=== PATIENT | male | born 1995 | race Caucasian/White ===

== ENCOUNTER 2017-08-28 20:12 | Emergency (ER) | payer OTHER ==
[2017-08-28] MEDS ORDERED: TETRACAINE 0.5% STERI-UNIT SOL OP ONE (20:26)
[2017-08-28] MEDS ORDERED: Fluor-I-Strip/Ful-Flo OP ONE (20:26)
[2017-08-28] MEDS ORDERED: Cortisporin Ophth Oint 3.5 GM ONE (20:31)
[2017-08-28] MEDS ORDERED: Sodium Chloride 0.9% 250 ML 250 ML IV ONE (20:31)
[2017-08-28] MEDS ORDERED: Cortisporin Eye Drops OP ONE (20:34)
--- NOTE | 2017-08-28 20:39 | ERPHSYRPT ---
- History of Present Illness Time Seen by Provider: 08/28/17 20:33 Source: patient Exam Limitations: no limitations Patient Subjective Stated Complaint: pt is alert and oriented. pt is ambulatory with steady gait. pt states he was doing yard work with wood and metal and believes a piece got into his eye. no drainage. no swelling and mild redness to his right eye noted. Triage Nursing Assessment: see above Physician History: pt states he was doing yard work with wood and metal and believes a piece got into his eye. no drainage. no swelling and mild redness to his right eye noted. Timing/Duration: today Location: right eye Severity: mild Apparent Injury: yes Associated Symptoms: foreign body sensation Visual Assistive Devices: None Chemical Exposure: No Trauma: No Welding Arc/Tanning Bed Exposure: No Allergies/Adverse Reactions: No Known Drug Allergies Allergy (Unverified 08/28/17 20:25) Hx Tetanus, Diphtheria Vaccination/Date Given: Yes Immunizations Up to Date: Yes - Review of Systems Constitutional: No Symptoms Eyes: Eye Redness, Tearing, Foreign Body Sensation, No Vision Changes Ears, Nose, & Throat: No Symptoms - Past Medical History Pertinent Past Medical History: No - Past Surgical History Past Surgical History: No - Social History Smoking Status: Former smoker Drug Use: none - Nursing Vital Signs Nursing Vital Signs: Initial Vital Signs Temperature 98.0 F 08/28/17 20:14 Pulse Rate 78 08/28/17 20:14 Respiratory Rate 16 08/28/17 20:14 Blood Pressure 129/75 08/28/17 20:14 O2 Sat by Pulse Oximetry 96 08/28/17 20:14 - Physical Exam General Appearance: no apparent distress Vision Acuity Degree Evaluation Phase: Uncorrected Vision Acuity Right Eye: 20/20 Vision Acuity Left Eye: 20/20 Eye Exam: right eye: conjunctival inflammation, bilateral eye: normal inspection , PERRL, EOMI SpO2: 96 Oxygen Delivery: Room Air Procedures - Eye Procedure Tetracaine Drops Administered: Yes Eye FB Removal: other Remaining Material after FB Removal: none Eye Irrigated w/ Saline (ccs): 250 Antibiotic Oinment/Drps Admin: right eye Progress: no foreign body found, fundoscopic exam appears normal - Course Nursing assessment & vital signs reviewed: Yes Ordered Tests: Medication Summary Discontinued Medications Generic Name Dose Route Start Last Admin Trade Name Freq PRN Reason Stop Dose Admin Fluorescein Sodium Confirm 08/28/17 20:26 [id number]-Jprtu/Ful-Steve Administered 08/28/17 20:27 Dose 1 mg OP .STK-MED ONE Tetracaine HCl Confirm 08/28/17 20:26 Tetracaine 0.5% Steri-Unit Sharon Administered 08/28/17 20:27 Dose 4 ml OP .STK-MED ONE - Progress Progress: improved Counseled pt/family regarding: diagnosis, need for follow-up - Departure Time of Disposition: 20:36 Departure Disposition: Home Clinical Impression: Eye injury, non-penetrating Qualifiers: Encounter type: initial encounter Laterality: right Qualified Code(s): S05.91XA - Unspecified injury of right eye and orbit, initial encounter Eye injury, superficial Qualifiers: Encounter type: initial encounter Laterality: right Qualified Code(s): S05.8X1A - Other injuries of right eye and orbit, initial encounter Condition: Stable Critical Care Time: No Referrals: BETSY JOHNSON [Primary Care Provider] - Instructions: Foreign Body in Eye (DC) Additional Instructions: EYE PROBLEM 1. If a patch is applied, your vision will be impaired. Do not drive. 2. The more you rest your good eye, the better your affected eye will feel. 3. Use any eye drops or ointments as prescribed by the emergency room physician. 4. See your family physician or return to the emergency department for any increasing pain or decreased vision. 5. Use good hygiene and keep eye clean. 6. Do not rub the eye. HOLAABEL ALAN was seen on 08/28/17 n the Emergency Room. At that time you were treated for an emergent condition, during your visit Laboratory, Radiology and/or other procedures may have been ordered. It is very important that you follow-up with your Primary Care Physician BETSY JOHNSON within the next 24-48 hours to review your Emergency Room visit and the final results of testing that was ordered. Some test results such as Urine Cultures, Blood Cultures, and other cultures if ordered will not be finalized for 24-48 hours. If you do not have a Primary Care Provider please call the medical records department at [phone] to obtain a copy of your results or you may sign into our patient portal to obtain these results by visiting us @ [email or web address] and completing the following steps: 1. Click on the Patient Portal link 2. Click the Patient Self Enrollment Link to complete the enrollment form and entering your 3. Once the enrollment form is completed you will receive an email with a temporary ID and password at the email address you provided. 4. Next choose a user name and password. Your user name must be at least 4 characters long and your password must be at least 4 characters long. 5. Choose a security question from the list and provide your answer to the question. If you already have signed into the Health Portal you may access your Health Care Information 01/09 by the following steps: 1. Login to our website @ [email or web address] 2. Enter your original user name and password. FAQS The [facility] Health Portal is an online tool that contains your Lab Results, Radiology Reports, Visit History, Discharge Instructions and Health Summary Lab and Radiology Results will not be available for 72 hours on the portal. The Portal is a secure site, passwords are encryted and URLs are re-written so they cannot be copied and pasted. You and authorized family members are the only ones who can access your Portal. Also there is a timeout feature that protects your information if you leave the Portal page open. If you have technical difficulty please use the Contact Us link on the page this will allow you to submit any questions you have regarding the Portal or you may contact the Medical Record Department at [phone]. Please follow the instructions given to you. Please take your medication as prescribed if given. If symptoms recur or get worse, come back to the emergency room if you cannot reach your primary care physician, or call your primary care physician for an appointment. Again if your symptoms get worse, come back to the emergency room. Thanks for visiting emergency room, and let us take care of you. Use eye drops 2 drops 4 times a day for 5 days. follow up with patient consumer marketer or your primary care physician in 2 days
[2017-08-28] MEDS ORDERED: TETRACAINE 0.5% STERI-UNIT SOL OP STA (20:51)
[2017-08-28 20:58] VITALS: BP 129/75; PULSE 78; O2SAT 96
[2017-08-28] MEDS ORDERED: Cortisporin Eye Drops OP SCH (21:00)
== END 2017-08-28 20:51 | disposition home or self-care (01) ==
LOC: ED 20:12
DX: S05.91XA Unspecified injury of right eye and orbit, initial encounter (principal); X58.XXXA Exposure to other specified factors, initial encounter; Y93.H2 Activity, gardening and landscaping; Y92.007 Garden or yard of unspecified non-institutional (private) residence as the place of occurrence of the external cause
CPT/HCPCS: 66999; 99283; A9270-GY

== ENCOUNTER 2018-04-24 19:37 | Observation (INO) | payer BC, OTHER ==
[2018-04-24] MEDS ORDERED: PROTONIX 40 MG IV IV ONE ×2 (20:57→21:03)
[2018-04-24] MEDS ORDERED: Zofran 4 MG/2 ML VIAL IV ONE (20:57)
[2018-04-24] MEDS ORDERED: MORPHINE SULFATE 4 MG INJ IV ONE (20:57)
[2018-04-24] MEDS ORDERED: Sodium Chloride 0.9% 1000 ML 1,000 ML IV STA (20:57)
[2018-04-24] MEDS ORDERED: Zofran 4 MG/2 ML VIAL ONE (21:03)
[2018-04-24] MEDS ORDERED: MORPHINE SULFATE 4 MG INJ ONE (21:03)
[2018-04-24] MEDS ORDERED: Sodium Chloride 0.9% 1000 ML 1,000 ML ONE (21:03)
[2018-04-24 21:13] LABS: BASOPHIL % 0.3 % (0.0-0.4); Basophil (Absolute #) 0.03 (0-0.4); Eosinophil % 2.2 % (0.00-5.0); Eosinophil (Absolute #) 0.24 (0-0.5); Granulocyte Absolute (ANC) 7.42 (1.4-6.9); Granulocytes % 69.5 % (36.0-66.0); Hematocrit 48.4 % (42-50); Hemoglobin 16.1 gm/dl (12.5-18.0); Lymphocyte (Absolute #) 2.01 (1.0-4.6); Lymphocytes % 18.8 % (24.0-44.0); Mean Cell Volume 90.5 fl (78-100); Mean Corpuscular Hemoglobin 30.1 pg (26-32); Mean Corpuscular Hgb Concent. 33.3 g/dl (32-36); Monocyte (Absolute #) 0.98 (0.0-1.3); Monocytes % 9.2 % (0.0-12.0); Platelet Count 240 K/mm3 (150-450); Red Blood Count 5.35 M/mm3 (4.1-5.6); Red Cell Distribution Width 12.8 % (11.5-14.0); White Blood Count 10.7 K/mm3 (4.0-10.5)
[2018-04-24 21:27] LABS: ALKALINE PHOSPHATASE 101 U/L (38-126); AMYLASE 93 U/L (30-110); BLOOD UREA NITROGEN 18 mg/dL (9-20); CHLORIDE 108 mmol/L (98-107); Calcium 10.1 mg/dL (8.4-10.2); Carbon Dioxide 25 mmol/L (22-30); Creatinine 1 0.87 mg/dL (0.66-1.25); Glucose 92 mg/dL (74-106); LIPASE 57 U/L (23-300); SGOT/AST 31 U/L (17-59); SGPT/ALT 68 U/L (0-50); SODIUM 144 mmol/L (137-145); Total Protein 8.3 g/dL (6.3-8.2)
[2018-04-24 21:34] LABS: Appearance CLEAR (CLEAR); Bilirubin NEGATIVE (NEGATIVE); Blood NEGATIVE Ery/ul (0-5); Glucose NEGATIVE (NEGATIVE); Ketones NEGATIVE (NEGATIVE); Leukocyte Esterase NEGATIVE (NEGATIVE); Mucus MANY /HPF (NEGATIVE); Nitrite NEGATIVE (NEGATIVE); Protein,Urine Dip NEGATIVE (Negative); Specific Gravity 1.024 (1.005-1.025); Urobilinogen NEGATIVE mg/dL (0-1)
[2018-04-24] MEDS ORDERED: Hydromorphone 1 mg/ml Ampule IV ONE (21:34)
[2018-04-24] MEDS ORDERED: Hydromorphone 1 mg/ml Ampule ONE (21:36)
--- NOTE | 2018-04-24 21:39 | ERPHSYRPT ---
- History of Present Illness Time Seen by Provider: 04/24/18 21:33 Historian: patient, family Exam Limitations: no limitations Patient Subjective Stated Complaint: Abdominal pain Triage Nursing Assessment: Patient ambulated back to ED and transferred self to bed. Patient A+O X 3. Patient's skin pink, warm and dry. Patient complains of abdominal pain for about a month with increasing pain 6/10. Patient states he feels better when he is curled in a ball or holding onto stomach. Patient states he has vomiting yellow emesis. Patient also states having liquid yellow stools. Patient has been sweating at rest. Patient states he lost control of his bowels recently. Abdomen soft and flat with active BS. Lungs clear a/p junior. Physician History: pt has a month hx of abdominal pain now worse with vomiting, fever, and diarrhea no work up , abd is mildly diffuse tenderness no peritoneal signs and nondistended, no prior abd surgeries Timing/Duration: week(s), intermittent Quality: sharpness Abdominal Pain Onset Location: generalized abdomen Pain Radiation: no radiation Severity of Pain-Max: moderate Severity of Pain-Current: moderate Modifying Factors: Improves With: eating Associated Symptoms: nausea, vomiting Previous symptoms: same symptoms as today, no recent treatment Allergies/Adverse Reactions: No Known Drug Allergies Allergy (Verified 04/24/18 19:48) Home Medications: Ranitidine HCl 150 mg PO BID 04/24/18 [History] Hx Tetanus, Diphtheria Vaccination/Date Given: Yes Hx Influenza Vaccination/Date Given: No Hx Pneumococcal Vaccination/Date Given: No Immunizations Up to Date: Yes - Review of Systems Constitutional: Fever, No Chills Eyes: No Symptoms Ears, Nose, & Throat: No Symptoms Respiratory: No Cough, No Dyspnea Cardiac: No Chest Pain, No Edema, No Syncope Abdominal/Gastrointestinal: Abdominal Pain, Nausea, Vomiting, Diarrhea Genitourinary Symptoms: No Dysuria Musculoskeletal: No Back Pain, No Neck Pain Skin: No Rash Neurological: No Dizziness, No Focal Weakness, No Sensory Changes Psychological: No Symptoms Endocrine: No Symptoms All Other Systems: Reviewed and Negative - Past Medical History Pertinent Past Medical History: No Neurological History: No Pertinent History ENT History: No Pertinent History Cardiac History: No Pertinent History Respiratory History: No Pertinent History Endocrine Medical History: No Pertinent History Musculoskeletal History: No Pertinent History GI Medical History: No Pertinent History History: No Pertinent History Psycho-Social History: No Pertinent History Male Reproductive Disorders: No Pertinent History - Past Surgical History Past Surgical History: Yes Neuro Surgical History: No Pertinent History Cardiac: No Pertinent History Respiratory: No Pertinent History Gastrointestinal: Cholecystectomy Genitourinary: No Pertinent History Musculoskeletal: No Pertinent History Male Surgical History: No Pertinent History - Social History Smoking Status: Current some day smoker How long have you smoked: 13 years Exposure to second hand smoke: Yes Drug Use: none Patient Lives Alone: No - Nursing Vital Signs Nursing Vital Signs: Initial Vital Signs Temperature 98.6 F 04/24/18 20:31 Pulse Rate 63 04/24/18 20:31 Respiratory Rate 18 04/24/18 20:31 Blood Pressure 134/76 04/24/18 20:31 O2 Sat by Pulse Oximetry 98 04/24/18 20:31 Pain Scale Pain Intensity 5 - Physical Exam General Appearance: no apparent distress, alert Eye Exam: PERRL/EOMI, eyes nml inspection Ears, Nose, Throat Exam: normal ENT inspection, pharynx normal, moist mucous membranes Neck Exam: normal inspection, non-tender, supple, full range of motion Respiratory Exam: normal breath sounds, lungs clear, No respiratory distress Cardiovascular Exam: regular rate/rhythm, normal heart sounds Gastrointestinal/Abdomen Exam: soft, tenderness, No distention, No mass, No guarding, No rebound, No hernia Rectal Exam: deferred Back Exam: normal inspection, normal range of motion, No CVA tenderness, No vertebral tenderness Extremity Exam: normal inspection, normal range of motion, pelvis stable Neurologic Exam: alert, oriented x 3, cooperative, normal mood/affect, nml cerebellar function, sensation nml, No motor deficits Skin Exam: normal color, warm, dry SpO2: 97 - Course Nursing assessment & vital signs reviewed: Yes EKG Interpreted by Me: Sinus Rhythm, Right Gary Deviation, Non-specific ST Changes - CT Exams Abdomen/Pelvis CT Interpretation: Tele-radiologist Report, Normal Appendix Ordered Tests: Active Orders 24 hr Category Date Time Status Clean Catch Urine Specimen STAT Care 04/24/18 20:57 Active EKG-ER Only STAT Care 04/24/18 20:57 Active IV Insertion STAT Care 04/24/18 20:57 Active ABDOMEN AND PELVIS W/0 CONTRAS [CT] Stat Exams 04/24/18 20:58 Taken AMYLASE Stat Lab 04/24/18 21:00 Completed CBC W DIFF Stat Lab 04/24/18 21:00 Completed CMP Stat Lab 04/24/18 21:00 Completed LIPASE Stat Lab 04/24/18 21:00 Completed Lactic Acid Stat Lab 04/24/18 21:04 Completed TROPONIN Q3H Lab 04/24/18 21:00 Completed UA W/RFX UR CULTURE Stat Lab 04/24/18 21:00 Completed Medication Summary Discontinued Medications Generic Name Dose Route Start Last Admin Trade Name Sharq PRN Reason Stop Dose Admin Diphenhydramine HCl 50 mg 04/24/18 21:52 04/24/18 21:55 Benadryl 50 Mg/Ml IV 04/24/18 21:53 50 mg STAT ONE Administration Diphenhydramine HCl Confirm 04/24/18 21:53 Benadryl 50 Mg/Ml Administered 04/24/18 21:54 Dose 50 mg .ROUTE .STK-MED ONE Famotidine 20 mg 04/24/18 21:46 04/24/18 21:55 Pepcid 20 Mg Vial IV 04/24/18 21:47 20 mg STAT ONE Administration Famotidine Confirm 04/24/18 21:52 Pepcid 20 Mg Vial Administered 04/24/18 21:53 Dose 20 mg IV .STK-MED ONE Hydromorphone HCl 1 mg 04/24/18 21:34 04/24/18 21:37 Hydromorphone 1 Mg/Ml Ampule IV 04/24/18 21:35 1 mg STAT ONE Administration Hydromorphone HCl Confirm 04/24/18 21:36 Hydromorphone 1 Mg/Ml Ampule Administered 04/24/18 21:37 Dose 1 mg .ROUTE .STK-MED ONE Sodium Chloride 1,000 mls @ 999 mls/hr 04/24/18 20:57 04/24/18 22:10 Sodium Chloride 0.9% 1000 Ml IV 04/24/18 21:57 Infused .Q1H1M STA Infusion Sodium Chloride Confirm 04/24/18 21:03 Sodium Chloride 0.9% 1000 Ml Administered 04/24/18 21:04 Dose 1,000 mls @ ud .ROUTE .STK-MED ONE Morphine Sulfate 4 mg 04/24/18 20:57 04/24/18 21:08 Morphine Sulfate 4 Mg Inj IV 04/24/18 20:58 4 mg STAT ONE Administration Morphine Sulfate Confirm 04/24/18 21:03 Morphine Sulfate 4 Mg Inj Administered 04/24/18 21:04 Dose 4 mg .ROUTE .STK-MED ONE Ondansetron HCl 4 mg 04/24/18 20:57 04/24/18 21:07 Zofran 4 Mg/2 Ml Vial IV 04/24/18 20:58 4 mg STAT ONE Administration Ondansetron HCl Confirm 04/24/18 21:03 Zofran 4 Mg/2 Ml Vial Administered 04/24/18 21:04 Dose 4 mg .ROUTE .STK-MED ONE Pantoprazole Sodium 40 mg 04/24/18 20:57 04/24/18 21:06 Protonix 40 Mg Iv IV 04/24/18 20:58 40 mg STAT ONE Administration Pantoprazole Sodium Confirm 04/24/18 21:03 Protonix 40 Mg Iv Administered 04/24/18 21:04 Dose 40 mg IV .STK-MED ONE Lab/Rad Data: Laboratory Result Diagrams 04/24/18 21:00 04/24/18 21:00 Laboratory Results 04/24/18 04/24/18 04/24/18 Range/Units 21:04 21:00 21:00 WBC (4.0-10.5) K/mm3 RBC (4.1-5.6) M/mm3 Hgb (12.5-18.0) gm/dl Hct (42-50) % MCV (78-100) fl MCH (26-32) pg MCHC (32-36) g/dl RDW (11.5-14.0) % Plt Count (150-450) K/mm3 MPV (6-9.5) fl Gran % (36.0-66.0) % Eos # (Auto) (0-0.5) Absolute Lymphs (auto) (1.0-4.6) Absolute Monos (auto) (0.0-1.3) Lymphocytes % (24.0-44.0) % Monocytes % (0.0-12.0) % Eosinophils % (0.00-5.0) % Basophils % (0.0-0.4) % Absolute Granulocytes (1.4-6.9) Basophils # (0-0.4) Sodium (137-145) mmol/L Potassium (3.5-5.1) mmol/L Chloride (98-107) mmol/L Carbon Dioxide (22-30) mmol/L Anion Gap (5-15) MEQ/L BUN (9-20) mg/dL Creatinine (0.66-1.25) mg/dL Estimated GFR ML/MIN Glucose (74-106) mg/dL Lactic Acid 1.1 (0.4-2.0) Calcium (8.4-10.2) mg/dL Total Bilirubin (0.2-1.3) mg/dL AST (17-59) U/L ALT (0-50) U/L Alkaline Phosphatase (38-126) U/L Troponin I < 0.012 (0.000-0.034) ng/mL Serum Total Protein (6.3-8.2) g/dL Albumin (3.5-5.0) g/dL Amylase (30-110) U/L Lipase (23-300) U/L Urine Color YELLOW (YELLOW) Urine Appearance CLEAR (CLEAR) Urine pH 5.0 (5-6) Ur Specific [place] 1.024 (1.005-1.025) Urine Protein NEGATIVE (Negative) Urine Ketones NEGATIVE (NEGATIVE) Urine Blood NEGATIVE (0-5) Sherman/ul Urine Nitrite NEGATIVE (NEGATIVE) Urine Bilirubin NEGATIVE (NEGATIVE) Urine Urobilinogen NEGATIVE (0-1) mg/dL Ur Leukocyte Esterase NEGATIVE (NEGATIVE) Urine WBC (Auto) NONE (0-5) /HPF Urine RBC (Auto) NONE (0-2) /HPF U Epithel Cells (Auto) NONE (FEW) /HPF Urine Bacteria (Auto) NONE (NEGATIVE) /HPF Urine Mucus (Auto) MANY (NEGATIVE) /HPF Urine Culture Reflexed NO (NO) Urine Glucose NEGATIVE (NEGATIVE) mg/dL 04/24/18 04/24/18 Range/Units 21:00 21:00 WBC 10.7 H (4.0-10.5) K/mm3 RBC 5.35 (4.1-5.6) M/mm3 Hgb 16.1 (12.5-18.0) gm/dl Hct 48.4 (42-50) % MCV 90.5 (78-100) fl MCH 30.1 (26-32) pg MCHC 33.3 (32-36) g/dl RDW 12.8 (11.5-14.0) % Plt Count 240 (150-450) K/mm3 MPV 10.0 H (6-9.5) fl Gran % 69.5 H (36.0-66.0) % Eos # (Auto) 0.24 (0-0.5) Absolute Lymphs (auto) 2.01 (1.0-4.6) Absolute Monos (auto) 0.98 (0.0-1.3) Lymphocytes % 18.8 L (24.0-44.0) % Monocytes % 9.2 (0.0-12.0) % Eosinophils % 2.2 (0.00-5.0) % Basophils % 0.3 (0.0-0.4) % Absolute Granulocytes 7.42 H (1.4-6.9) Basophils # 0.03 (0-0.4) Sodium 144 (137-145) mmol/L Potassium 4.0 (3.5-5.1) mmol/L Chloride 108 H (98-107) mmol/L Carbon Dioxide 25 (22-30) mmol/L Anion Gap 16.0 H (5-15) MEQ/L BUN 18 (9-20) mg/dL Creatinine 0.87 (0.66-1.25) mg/dL Estimated GFR > 60.0 ML/MIN Glucose 92 (74-106) mg/dL Lactic Acid (0.4-2.0) Calcium 10.1 (8.4-10.2) mg/dL Total Bilirubin 0.40 (0.2-1.3) mg/dL AST 31 (17-59) U/L ALT 68 H (0-50) U/L Alkaline Phosphatase 101 (38-126) U/L Troponin I (0.000-0.034) ng/mL Serum Total Protein 8.3 H (6.3-8.2) g/dL Albumin 5.0 (3.5-5.0) g/dL Amylase 93 (30-110) U/L Lipase 57 (23-300) U/L Urine Color (YELLOW) Urine Appearance (CLEAR) Urine pH (5-6) Ur Specific [place] (1.005-1.025) Urine Protein (Negative) Urine Ketones (NEGATIVE) Urine Blood (0-5) Sherman/ul Urine Nitrite (NEGATIVE) Urine Bilirubin (NEGATIVE) Urine Urobilinogen (0-1) mg/dL Ur Leukocyte Esterase (NEGATIVE) Urine WBC (Auto) (0-5) /HPF Urine RBC (Auto) (0-2) /HPF U Epithel Cells (Auto) (FEW) /HPF Urine Bacteria (Auto) (NEGATIVE) /HPF Urine Mucus (Auto) (NEGATIVE) /HPF Urine Culture Reflexed (NO) Urine Glucose (NEGATIVE) mg/dL - Progress Progress: improved, re-examined Progress Note: 04/24/18 22:31 discussed wit pt and dr hampton and all agree best to come in on obs overnight. Discussed with .: Michelle Will see patient in: hospital (observation) Counseled pt/family regarding: lab results, diagnosis, need for follow-up, rad results - Departure Time of Disposition: 22:36 Departure Disposition: Observation Clinical Impression: Intractable abdominal pain, PUD (peptic ulcer disease) Condition: Good Critical Care Time: No Referrals: BETSY JOHNSON [Primary Care Provider] -
[2018-04-24] MEDS ORDERED: Pepcid 20 MG VIAL IV ONE ×2 (21:46→21:52)
[2018-04-24] MEDS ORDERED: BENADRYL 50 MG/ML IV ONE (21:52)
[2018-04-24] MEDS ORDERED: BENADRYL 50 MG/ML ONE (21:53)
[2018-04-24] MEDS ORDERED: TYLENOL 325 MG PO PRN (23:13)
[2018-04-24] MEDS: Sodium Chloride 0.9% 1000 ML 1,000 ML IV SCH (23:27)
[2018-04-25 06:04] LABS: BASOPHIL % 0.4 % (0.0-0.4); Basophil (Absolute #) 0.03 (0-0.4); Eosinophil % 3.5 % (0.00-5.0); Granulocyte Absolute (ANC) 3.98 (1.4-6.9); Granulocytes % 46.6 % (36.0-66.0); Hematocrit 42.6 % (42-50); Hemoglobin 14.1 gm/dl (12.5-18.0); Lymphocyte (Absolute #) 3.21 (1.0-4.6); Lymphocytes % 37.5 % (24.0-44.0); Mean Cell Volume 92.6 fl (78-100); Mean Corpuscular Hemoglobin 30.7 pg (26-32); Mean Corpuscular Hgb Concent. 33.1 g/dl (32-36); Mean Platelet Volume 9.7 fl (6-9.5); Monocyte (Absolute #) 1.03 (0.0-1.3); Platelet Count 197 K/mm3 (150-450); Red Cell Distribution Width 12.8 % (11.5-14.0); White Blood Count 8.6 K/mm3 (4.0-10.5)
[2018-04-25] MEDS: Zofran 4 MG/2 ML VIAL IV PRN ×2 (06:37→15:04)
[2018-04-25 06:45] LABS: ALBUMIN 3.9 g/dL (3.5-5.0); ALKALINE PHOSPHATASE 73 U/L (38-126); ANION GAP 12.3 MEQ/L (5-15); BLOOD UREA NITROGEN 16 mg/dL (9-20); CHLORIDE 110 mmol/L (98-107); Carbon Dioxide 24 mmol/L (22-30); Creatinine 1 0.88 mg/dL (0.66-1.25); Glucose 90 mg/dL (74-106); SGOT/AST 25 U/L (17-59); SGPT/ALT 54 U/L (0-50); SODIUM 143 mmol/L (137-145); Total Protein 6.6 g/dL (6.3-8.2)
[2018-04-25] MEDS: DILAUDID 2 MG INJECTION IV PRN ×2 (06:49→13:31)
[2018-04-25] MEDS ORDERED: Phenergan 25 MG INJ IV PRN (07:30)
[2018-04-25] MEDS: Pepcid 20 MG VIAL IV SCH ×2 (07:44→21:32)
[2018-04-25] MEDS ORDERED: PROTONIX 40 MG IV IV SCH (08:00)
--- NOTE | 2018-04-25 08:33 | XRAY ---
Indication: Abdomen pain and diarrhea. Multiple contiguous axial images obtained through the abdomen and pelvis without contrast as ordered. Comparison: None Lung bases are clear. Heart is not enlarged. Stomach distended with food/fluid. Noncontrasted stomach and bowel loops appear nonobstructed. Normal appendix. Previous cholecystectomy. No free fluid/air. Remaining liver, pancreas, spleen, adrenal glands, kidneys, ureters, bladder, and aorta appear unremarkable for noncontrast exam. Osseous structures intact. No ventral or inguinal hernias. Impression: CT abdomen/pelvis without contrast exam is negative. Comment: Preliminary interpretation was made by C. No discrepancy. CTDI 12.91
[2018-04-25] MEDS: Sodium Chloride 0.9% 1000 ML 1,000 ML IV SCH ×2 (09:09→18:55)
--- NOTE | 2018-04-25 09:56 | PCM.HP ---
History of Present Illness - Chief Complaint Chief Complaint: intractable abdominal pain History of Present Illness: is a 23 year old male pt of Dr. Kaur in who came to ER complaining of abdominal pain. Has had 3 yrs of abd pain, worse (daily) for the past 1 mo, then yesterday he was having 10/10 pain to the L of the umbilicus , "like someone is trying to rip my stomach out." No fever. Vomiting. Was given dilaudid in the ER. This morning after his IV dilaudid, he c/o burning in the abdomen; resolved with pepcid/protonix. Now he endorses no pain. Pt had a cholecystectomy with Dr. Jessica 3 yrs ago for abd pain but he feels he has had the same issue ever since. He also c/o 1 month of diarrhea. He often has discomfort in the lower abdomen. He has not been to see Dr. 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 He was most recently in [place]. Apparently had an echo many years ago, per mom was told "his heart wasn't big enough for his body but it would catch up." Had a stress test several years ago at [facility] with Dr. Kaur but was never told any results. - Review of Systems Constitutional: No Fever Eyes: Vision Changes (blurry vision) Respiratory: Short Of Breath (at night when lying down and with sex) Abdominal/Gastrointestinal: Abdominal Pain, Nausea, Vomiting, Diarrhea, Appetite Changes (yesterday decreased po), No Hematochezia, No Melena Genitourinary Symptoms: No Dysuria, No Hematuria Musculoskeletal: Neck Pain (when he gets "worked up" with abd pain or anxiety he has shooting pain in L neck and sometimes feels the lymph node on the L is enlarged ) Neurological: Parasthesia (tingling in fingertips and pins/needles in toes x 1 yr) Psychological: Anxiety, No Depression, No Suicidal Ideations All Other Systems: Reviewed and Negative Medications & Allergies Home Medications: Home Medication List Ranitidine HCl 150 mg PO BID 04/24/18 [History Confirmed 04/24/18] Allergies/Adverse Reactions: Allergies Allergy/AdvReac Type Severity Reaction Status Date / Time No Known Drug Allergies Allergy Verified 04/24/18 19:48 - Past Medical History Past Medical History: No Neurological History: No Pertinent History ENT History: No Pertinent History Cardiac History: No Pertinent History Respiratory History: No Pertinent History Endocrine Medical History: No Pertinent History Musculoskelatal History: No Pertinent History GI Medical History: GERD History: No Pertinent History Pyscho-Social History: No Pertinent History Male Reproductive Disorders: No Pertinent History - Past Surgical History Past Surgical History: Yes Neuro Surgical History: No Pertinent History Cardiac History: No Pertinent History Respiratory Surgery: No Pertinent History GI Surgical History: Cholecystectomy Genitourinary Surgical Hx: No Pertinent History Musculskeletal Surgical Hx: No Pertinent History Male Surgical History: No Pertinent History - Social History Smoking Status: Former smoker How long have you smoked: 13 years Exposure to second hand smoke: Yes Alcohol: None Drug Use: none - Physical Exam Vital Signs: Vital Signs - 24 hr Temp Pulse Resp BP Pulse Ox 04/25/18 07:24 98.2 F 55 L 16 151/80 94 L 04/25/18 03:12 97.5 F 58 L 14 115/58 93 L 04/24/18 23:39 70 18 98 04/24/18 23:38 97.4 F 64 20 129/70 99 04/24/18 22:37 97 04/24/18 22:15 97.6 F 62 22 137/69 99 04/24/18 21:20 57 L 18 129/71 97 04/24/18 20:31 98.6 F 63 18 134/76 98 Oxygen-Last 24 hours O2 Percentage 2 Liters = 28% Oxygen Flowrate (L/min)-RT 2 General Appearance: no apparent distress, alert Neurologic Exam: oriented x 3, cooperative Eye Exam: eyes nml inspection Ears, Nose, Throat Exam: moist mucous membranes Neck Exam: normal inspection, non-tender, No lymphadenopathy Respiratory Exam: normal breath sounds, lungs clear, No crackles/rales, No rhonchi, No wheezing Cardiovascular Exam: normal heart sounds, bradycardia, No murmur Gastrointestinal/Abdomen Exam: soft, No normal bowel sounds (hypoactive), No tenderness, No distention, No mass, No guarding, No rebound Back Exam: normal inspection, No rash Extremity Exam: normal inspection, No pedal edema, No swelling Skin Exam: normal color, warm, dry, No rash Results - Labs Lab/Micro Results: Accuchecks Date 04/25/18 Time 00:44 Accucheck Value: 95 Lab Results-Last 24 Hours 04/24/18 04/24/18 04/24/18 Range/Units 21:00 21:00 21:00 WBC 10.7 H (4.0-10.5) K/mm3 RBC 5.35 (4.1-5.6) M/mm3 Hgb 16.1 (12.5-18.0) gm/dl Hct 48.4 (42-50) % MCV 90.5 (78-100) fl MCH 30.1 (26-32) pg MCHC 33.3 (32-36) g/dl RDW 12.8 (11.5-14.0) % Plt Count 240 (150-450) K/mm3 MPV 10.0 H (6-9.5) fl Gran % 69.5 H (36.0-66.0) % Eos # (Auto) 0.24 (0-0.5) Absolute Lymphs (auto) 2.01 (1.0-4.6) Absolute Monos (auto) 0.98 (0.0-1.3) Lymphocytes % 18.8 L (24.0-44.0) % Monocytes % 9.2 (0.0-12.0) % Eosinophils % 2.2 (0.00-5.0) % Basophils % 0.3 (0.0-0.4) % Absolute Granulocytes 7.42 H (1.4-6.9) Basophils # 0.03 (0-0.4) Sodium 144 (137-145) mmol/L Potassium 4.0 (3.5-5.1) mmol/L Chloride 108 H (98-107) mmol/L Carbon Dioxide 25 (22-30) mmol/L Anion Gap 16.0 H (5-15) MEQ/L BUN 18 (9-20) mg/dL Creatinine 0.87 (0.66-1.25) mg/dL Estimated GFR > 60.0 ML/MIN Glucose 92 (74-106) mg/dL Lactic Acid (0.4-2.0) Calcium 10.1 (8.4-10.2) mg/dL Total Bilirubin 0.40 (0.2-1.3) mg/dL AST 31 (17-59) U/L ALT 68 H (0-50) U/L Alkaline Phosphatase 101 (38-126) U/L Troponin I < 0.012 (0.000-0.034) ng/mL Serum Total Protein 8.3 H (6.3-8.2) g/dL Albumin 5.0 (3.5-5.0) g/dL Amylase 93 (30-110) U/L Lipase 57 (23-300) U/L Urine Color (YELLOW) Urine Appearance (CLEAR) Urine pH (5-6) Ur Specific Wren (1.005-1.025) Urine Protein (Negative) Urine Ketones (NEGATIVE) Urine Blood (0-5) Sherman/ul Urine Nitrite (NEGATIVE) Urine Bilirubin (NEGATIVE) Urine Urobilinogen (0-1) mg/dL Ur Leukocyte Esterase (NEGATIVE) Urine WBC (Auto) (0-5) /HPF Urine RBC (Auto) (0-2) /HPF U Epithel Cells (Auto) (FEW) /HPF Urine Bacteria (Auto) (NEGATIVE) /HPF Urine Mucus (Auto) (NEGATIVE) /HPF Urine Culture Reflexed (NO) Urine Glucose (NEGATIVE) mg/dL 04/24/18 04/24/18 04/24/18 Range/Units 21:00 21:04 23:45 WBC (4.0-10.5) K/mm3 RBC (4.1-5.6) M/mm3 Hgb (12.5-18.0) gm/dl Hct (42-50) % MCV (78-100) fl MCH (26-32) pg MCHC (32-36) g/dl RDW (11.5-14.0) % Plt Count (150-450) K/mm3 MPV (6-9.5) fl Gran % (36.0-66.0) % Eos # (Auto) (0-0.5) Absolute Lymphs (auto) (1.0-4.6) Absolute Monos (auto) (0.0-1.3) Lymphocytes % (24.0-44.0) % Monocytes % (0.0-12.0) % Eosinophils % (0.00-5.0) % Basophils % (0.0-0.4) % Absolute Granulocytes (1.4-6.9) Basophils # (0-0.4) Sodium (137-145) mmol/L Potassium (3.5-5.1) mmol/L Chloride (98-107) mmol/L Carbon Dioxide (22-30) mmol/L Anion Gap (5-15) MEQ/L BUN (9-20) mg/dL Creatinine (0.66-1.25) mg/dL Estimated GFR ML/MIN Glucose (74-106) mg/dL Lactic Acid 1.1 (0.4-2.0) Calcium (8.4-10.2) mg/dL Total Bilirubin (0.2-1.3) mg/dL AST (17-59) U/L ALT (0-50) U/L Alkaline Phosphatase (38-126) U/L Troponin I < 0.012 (0.000-0.034) ng/mL Serum Total Protein (6.3-8.2) g/dL Albumin (3.5-5.0) g/dL Amylase (30-110) U/L Lipase (23-300) U/L Urine Color YELLOW (YELLOW) Urine Appearance CLEAR (CLEAR) Urine pH 5.0 (5-6) Ur Specific Wren 1.024 (1.005-1.025) Urine Protein NEGATIVE (Negative) Urine Ketones NEGATIVE (NEGATIVE) Urine Blood NEGATIVE (0-5) Sherman/ul Urine Nitrite NEGATIVE (NEGATIVE) Urine Bilirubin NEGATIVE (NEGATIVE) Urine Urobilinogen NEGATIVE (0-1) mg/dL Ur Leukocyte Esterase NEGATIVE (NEGATIVE) Urine WBC (Auto) NONE (0-5) /HPF Urine RBC (Auto) NONE (0-2) /HPF U Epithel Cells (Auto) NONE (FEW) /HPF Urine Bacteria (Auto) NONE (NEGATIVE) /HPF Urine Mucus (Auto) MANY (NEGATIVE) /HPF Urine Culture Reflexed NO (NO) Urine Glucose NEGATIVE (NEGATIVE) mg/dL 04/25/18 04/25/18 Range/Units 05:50 05:50 WBC 8.6 (4.0-10.5) K/mm3 RBC 4.60 (4.1-5.6) M/mm3 Hgb 14.1 (12.5-18.0) gm/dl Hct 42.6 (42-50) % MCV 92.6 (78-100) fl MCH 30.7 (26-32) pg MCHC 33.1 (32-36) g/dl RDW 12.8 (11.5-14.0) % Plt Count 197 (150-450) K/mm3 MPV 9.7 H (6-9.5) fl Gran % 46.6 (36.0-66.0) % Eos # (Auto) 0.30 (0-0.5) Absolute Lymphs (auto) 3.21 (1.0-4.6) Absolute Monos (auto) 1.03 (0.0-1.3) Lymphocytes % 37.5 (24.0-44.0) % Monocytes % 12.0 (0.0-12.0) % Eosinophils % 3.5 (0.00-5.0) % Basophils % 0.4 (0.0-0.4) % Absolute Granulocytes 3.98 (1.4-6.9) Basophils # 0.03 (0-0.4) Sodium 143 (137-145) mmol/L Potassium 4.0 (3.5-5.1) mmol/L Chloride 110 H (98-107) mmol/L Carbon Dioxide 24 (22-30) mmol/L Anion Gap 12.3 (5-15) MEQ/L BUN 16 (9-20) mg/dL Creatinine 0.88 (0.66-1.25) mg/dL Estimated GFR > 60.0 ML/MIN Glucose 90 (74-106) mg/dL Lactic Acid (0.4-2.0) Calcium 9.0 (8.4-10.2) mg/dL Total Bilirubin 0.50 (0.2-1.3) mg/dL AST 25 (17-59) U/L ALT 54 H (0-50) U/L Alkaline Phosphatase 73 (38-126) U/L Troponin I (0.000-0.034) ng/mL Serum Total Protein 6.6 (6.3-8.2) g/dL Albumin 3.9 (3.5-5.0) g/dL Amylase (30-110) U/L Lipase (23-300) U/L Urine Color (YELLOW) Urine Appearance (CLEAR) Urine pH (5-6) Ur Specific Wren (1.005-1.025) Urine Protein (Negative) Urine Ketones (NEGATIVE) Urine Blood (0-5) Sherman/ul Urine Nitrite (NEGATIVE) Urine Bilirubin (NEGATIVE) Urine Urobilinogen (0-1) mg/dL Ur Leukocyte Esterase (NEGATIVE) Urine WBC (Auto) (0-5) /HPF Urine RBC (Auto) (0-2) /HPF U Epithel Cells (Auto) (FEW) /HPF Urine Bacteria (Auto) (NEGATIVE) /HPF Urine Mucus (Auto) (NEGATIVE) /HPF Urine Culture Reflexed (NO) Urine Glucose (NEGATIVE) mg/dL Accuchecks Date 04/25/18 Time 00:44 Accucheck Value: 95 - Radiology Impressions Radiology Exams & Impressions: Radiology Procedures Category Date Time Status ABDOMEN AND PELVIS W/0 CONTRAS [CT] Stat Exams 04/24/18 20:58 Completed - Other Procedures and Tests Respiratory Therapy 04/24/18 23:37 Oxygen Nasal Cannula 2 lpm 04/24/18 23:39 Respiratory Therapy Assessment DAILY Assessment/Plan (1) Abdominal pain Current Visit: Yes Status: Acute Qualifiers: Abdominal location: periumbilical Qualified Code(s): R10.33 - Periumbilical pain Assessment & Plan: acute on chronic. Likely gastric issue and pt needs an EGD - however with the location of pain, diarrhea x 1 mo, and lower abdominal pain I think adding a colonoscopy is prudent. Will schedule both for the morning. Code(s): R10.9 - UNSPECIFIED ABDOMINAL PAIN (2) Diarrhea Current Visit: Yes Status: Chronic Qualifiers: Diarrhea type: unspecified type Qualified Code(s): R19.7 - Diarrhea, unspecified Code(s): R19.7 - DIARRHEA, UNSPECIFIED (3) Paresthesia Current Visit: Yes Status: Chronic Assessment & Plan: check B12/folate. I did explain that this problem will need outpatient evaluation as well. Code(s): R20.2 - PARESTHESIA OF SKIN (4) WILLIAM (dyspnea on exertion) Current Visit: Yes Status: Chronic Assessment & Plan: Echo tomorrow. Will get results of stress test done several years ago at [place]. Code(s): R06.09 - OTHER FORMS OF DYSPNEA
[2018-04-25] MEDS ORDERED: Golytely Solution 4000 ML PO ONE (14:00)
[2018-04-25] MEDS: PROTONIX 40 MG IV*** 80 MG in Sodium Chloride 0.9% 500 ML 500 ML IV SCH (15:20)
[2018-04-26] MEDS: PROTONIX 40 MG IV*** 80 MG in Sodium Chloride 0.9% 500 ML 500 ML IV SCH (02:44)
[2018-04-26] MEDS ORDERED: Lactated Ringers 1,000 ML IV SCH (05:00)
--- NOTE | 2018-04-26 08:19 | PCM.NOTE ---
Date and Time: 04/26/18813 Subjective Assessment: Pt did colon prep yesterday. Had some increased abd painwith that. He is having 4/10 abd pain this morning. I woke him up to examine him. - Review of Systems Constitutional: No Fever Abdominal/Gastrointestinal: Abdominal Pain Objective Exam General Appearance: no apparent distress, alert Neurologic Exam: oriented x 3, cooperative Skin Exam: normal color, warm, dry, No rash Eye Exam: eyes nml inspection Ears, Nose, Throat Exam: moist mucous membranes Respiratory Exam: normal breath sounds, lungs clear, No crackles/rales, No rhonchi, No wheezing Cardiovascular Exam: regular rate/rhythm, normal heart sounds, No murmur Gastrointestinal/Abdomen Exam: soft, tenderness (to L of umbilicus), No normal bowel sounds (hypoactive), No distention, No mass, No guarding, No rebound Back Exam: normal inspection OBJECTIVE DATA Vital Signs: Vital Signs - 24 hr Temp Pulse Resp BP Pulse Ox 04/26/18 07:33 98.4 F 68 18 120/65 96 04/26/18 04:00 98.2 F 65 14 117/63 98 04/26/18 00:00 98.5 F 63 16 120/63 98 04/25/18 23:13 98 04/25/18 20:16 60 16 97 04/25/18 20:00 98.1 F 52 L 16 120/63 98 04/25/18 16:00 97.9 F 58 L 16 130/61 95 04/25/18 12:00 98.2 F 54 L 16 131/59 99 04/25/18 10:57 98.2 F 55 L 16 151/80 96 Pain Assessment - Last Documented Pain Intensity 2 Pain Scale Used 0-10 Pain Scale Intake and Output: Intake & Output 04/23/18 04/24/18 04/25/18 04/26/18 11:59 11:59 11:59 11:59 Intake Total 4406 Output Total 400 2150 Balance -400 2256 Weight 81.1 kg 81.1 kg Lab Results: Lab Results-Last 24 Hours 04/25/18 04/25/18 Range/Units 05:50 17:39 Vitamin B12 708 (239-931) pg/mL Folic Acid 19.0 (2.76 - >20) ng/mL Stool Occult Bld Scrn NEGATIVE (NEGATIVE) Radiology Exams: Radiology Procedures Category Date Time Status ABDOMEN AND PELVIS W/0 CONTRAS [CT] Stat Exams 04/24/18 20:58 Completed ECHO W/2D AND DOPPLER [US] Routine Exams 04/26/18 Ordered Multi-Disciplinary Progress Notes: Multi-Disciplinary Progress Notes 04/25/18 15:16 Pharmacy Note by Hiram Alba Protonix drip at 50ml/hr is 8mg/hr. May infuse drip up to 3 days. Initialized on 04/25/18 15:16 - END OF NOTE 04/25/18 10:59 Case Management Note by Georgie Freitas Talked with ABEL SIMENTAL regarding needs at time of discharge. Patient reports residing at []. Patient reports plans on returning to [] upon discharge. Discharge questionaire reviewed with patient. Important message from Medicare signed. Patient verbalized understanding. Forms placed on chart. Patient meets Acute Adult Inpatient Criteria. Will continue to follow for all Discharge needs. Initialized on 04/25/18 10:59 - END OF NOTE Assessment/Plan (1) Abdominal pain Current Visit: Yes Status: Acute Qualifiers: Abdominal location: periumbilical Qualified Code(s): R10.33 - Periumbilical pain Assessment & Plan: having EGD and colonoscopy this morning. Code(s): R10.9 - UNSPECIFIED ABDOMINAL PAIN (2) Diarrhea Current Visit: Yes Status: Chronic Qualifiers: Diarrhea type: unspecified type Qualified Code(s): R19.7 - Diarrhea, unspecified Code(s): R19.7 - DIARRHEA, UNSPECIFIED (3) Paresthesia Current Visit: Yes Status: Chronic Code(s): R20.2 - PARESTHESIA OF SKIN (4) WILLIAM (dyspnea on exertion) Current Visit: Yes Status: Chronic Code(s): R06.09 - OTHER FORMS OF DYSPNEA
[2018-04-26] MEDS ORDERED: Phenergan 25 MG INJ ONE (08:20)
[2018-04-26] MEDS: Pepcid 20 MG VIAL IV SCH (09:52)
[2018-04-26 12:40] VITALS: BP 127/62; PULSE 62; O2SAT 97
--- NOTE | 2018-04-26 13:13 | OP ---
SURGERY DATE/TIME: 04/26/2018 0830 PREOPERATIVE DIAGNOSES: 1) Abdominal pain. 2) Rectal bleeding. POSTOPERATIVE DIAGNOSES: 1) Moderate gastritis. 2) Normal colon. PROCEDURES: 1) Esophagogastroduodenoscopy with cold forceps biopsy. 2) Colonoscopy. SURGEON: Dr. Godoy. ANESTHESIA: Medications were given by the anesthesia department. BRIEF HISTORY: The patient is a 23 year old white male patient who presented to the emergency room and then admitted to the hospital with complaints of vomiting, abdominal pain. He had fecal incontinence recently and had some blood in the stool. He had been having problems over the past month. He apparently had his gallbladder removed three years ago. The patient was felt the need to have endoscopic evaluation. He was appraised of the risks of the procedure including the risk of perforation, phlebitis, untoward reaction to medication, bleeding and missed lesions. The patient verbalized his understanding and desired to have the procedure performed. DESCRIPTION OF PROCEDURE: The patient was given the medications by the anesthesia department. He had continuous pulse oximetry, ECG monitoring, intermittent blood pressure monitoring and tidal CO2 monitoring during the examination. He was placed in the left lateral decubitus position. A bite block was placed and the flexible Olympus gastroscope was used to intubate the oropharynx. A view of the larynx was obtained and was normal. The scope was easily passed in the esophagus which appeared to be normal throughout its length. The stomach was entered. It appeared to be moderately erythematous but no erosions or ulcerations were noted. The gastric rugal folds distended nicely with insufflation of air. The scope was passed along the greater curvature of the stomach to the antrum. The pylorus encountered and intubated. The duodenum inspected and found to be normal. The scope was withdrawn towards the stomach. A retroflex view was obtained of the lesser curvature, fundus and cardia regions of the stomach and this appeared to be the most erythematous area of the stomach. Biopsies were obtained of the gastric antrum to rule out the presence of Helicobacter pylori-type organisms. The scope was removed from the patient. Next, a digital rectal examination was performed and revealed normal anal sphincter tone, no masses and normal prostate. The flexible Olympus pediatric colonoscope was used to intubate the rectum. A view of the colon was developed sequentially to the cecum. Upon insertion and withdrawal, including a retroflex view in the rectum, no mucosal lesions were encountered. The scope was removed from the patient who tolerated the procedure well and was sent back to the hospital [place] in good condition.
--- NOTE | 2018-04-26 14:56 | PCM.DS ---
Discharge Summary Date of Admission: 04/24/18 23:11 Admitting Physician: VANESSA BURGOS Consults: Consults on Case 04/25/18 10:03 Consult Surgery ROUTINE Primary Care Provider: VANESSA BURGOS Allergies Allergies No Known Drug Allergies Allergy (Verified 04/24/18 19:48) Hospital Summary - Hospital Course Hospital Course: Pt is a [address] Dubois who was admitted through the ER with vomiting and abdominal pain to the L of the umbilicus. CT of the abdomen was negative. WBC were 10.5; CMP grossly normal with mild increase in ALT to mid 60s. He was started on IV pain medication and admitted NPO for further observation. His pain was better with a PPI. He had also c/o some lower abdominal pain and diarrhea over the past 1 mo so this morning he had an EGD and colonoscopy with DR. Godoy. Per verbal report, pt had gastritis and a normal colonoscopy. Pt complained of dyspnea on exertion as well, so an echocardiogram has been done and a report is pending (from Dr. Rose). Pt is tolerating a bland diet. Will be sent home on carafate 1g po QID x 2 weeks and omeprazole 20mg 1 po BID x 1 week then 1 po daily. He is to f/u with his PCP in 1 week. - Vitals & Intake/Output Vital Signs: Vital Signs Temperature 98.4 F 04/26/18 12:00 Pulse Rate 62 04/26/18 12:00 Respiratory Rate 18 04/26/18 12:00 Blood Pressure 127/62 04/26/18 12:00 O2 Sat by Pulse Oximetry 97 04/26/18 12:00 Oxygen-Last Documented O2 Percentage 2 Liters = 28% Intake & Output: Intake & Output 04/24/18 04/25/18 04/26/18 04/27/18 11:59 11:59 11:59 11:59 Intake Total 4406 340 Output Total 400 2150 1200 Balance -400 2256 -860 Weight 81.1 kg 81.1 kg - Lab Result Diagrams: 04/25/18 05:50 04/25/18 05:50 Lab Results-Last 24 Hrs: Lab Results-Last 24 Hours 04/25/18 04/26/18 Range/Units 17:39 13:20 Hemoglobin A1c 4.96 (4.5-6.0) % Stool Occult Bld Scrn NEGATIVE (NEGATIVE) - Radiology Exams Ordered Rad Exams-Entire Visit: Radiology Procedures Category Date Time Status ABDOMEN AND PELVIS W/0 CONTRAS [CT] Stat Exams 04/24/18 20:58 Completed ECHO W/2D AND DOPPLER [US] Routine Exams 04/26/18 09:53 Taken - Procedures and Test Procedures and Tests throughout Hospitalization: Therapy Orders & Screens 04/24/18 23:39 Respiratory Therapy Assessment DAILY Comment: Diagnosis: intractable abdominal pain Discharge Exam General Appearance: no apparent distress, alert (asleep initially; wakes to voice), other (done this morning) Neurologic Exam: oriented x 3, cooperative Skin Exam: normal color, warm, dry, No rash Eye Exam: eyes nml inspection Ears, Nose, Throat Exam: moist mucous membranes Respiratory Exam: normal breath sounds, lungs clear, No crackles/rales, No rhonchi, No wheezing Cardiovascular Exam: regular rate/rhythm, normal heart sounds, No murmur Gastrointestinal/Abdomen Exam: soft, normal bowel sounds, tenderness (to L of umbilicus), No distention, No mass, No guarding, No rebound Extremity Exam: normal inspection, No pedal edema, No swelling Back Exam: normal inspection, No rash Final Diagnosis/Problem List - Final Discharge Diagnosis/Problem (1) Gastritis Current Visit: Yes Status: Acute Assessment & Plan: On EGD. Home on carafate (x 2 weeks) and omeprazole (20mg BID x 1 week then 1 po daily). Moose diet. F/u with PCP in1 week. Code(s): K29.70 - GASTRITIS, UNSPECIFIED, WITHOUT BLEEDING (2) Diarrhea Current Visit: Yes Status: Chronic Assessment & Plan: colonoscopy neg Code(s): R19.7 - DIARRHEA, UNSPECIFIED (3) Paresthesia Current Visit: Yes Status: Chronic Assessment & Plan: c/o 1 yr paresthesia fingertips and toes. B12/folate pending. Code(s): R20.2 - PARESTHESIA OF SKIN (4) WILLIAM (dyspnea on exertion) Current Visit: Yes Status: Chronic Assessment & Plan: echo pending. Done at [facility] on 04/26/18. Code(s): R06.09 - OTHER FORMS OF DYSPNEA - Discharge Disposition: Home, Self-Care Condition: Good Prescriptions: New Sucralfate 1 gm [Carafate 1 GM] 1 g PO ACHS #58 tablet Omeprazole 20 mg PO DAILY #37 capsule.dr Marleni Eastman Ranitidine HCl 150 mg PO BID Follow up with: VANESSA BURGOS [Primary Care Provider] - 1 Week
[2018-04-26] MEDS ORDERED: Carafate 1 GM PO ONE (15:21)
--- NOTE | 2018-04-26 15:33 | ECHO ---
Transthoracic echocardiographic examination and color Doppler was done on 04/26/2018. INDICATION: Shortness of breath. IMPRESSION: 1) NO REGIONAL WALL MOTION ABNORMALITY. ESTIMATED GLOBAL LEFT VENTRICULAR EJECTION FRACTION AROUND 60%. 2) TRACE TRICUSPID REGURGITATION. RIGHT VENTRICULAR SYSTOLIC PRESSURE OF 19 MM OF MERCURY. 3) LEFT VENTRICULAR HYPERTROPHY. The left ventricle is visualized and demonstrated adequate motion of all the segments. Estimated global left ventricular ejection fraction around 60%. There is mild left ventricular hypertrophy. The mitral valve is seen and this opens adequately. No significant mitral regurgitation is seen. The aortic valve opens adequately. The right side chambers are normal. There is trace tricuspid regurgitation. The right ventricular systolic pressure of 19 mm of Mercury.
[2018-04-26] MEDS ORDERED: Ketamine HCl 50 MG/ML IV ONE (16:18)
[2018-04-26] MEDS ORDERED: DIPRIVAN 200 MG/20 ML IV ONE (16:18)
== END 2018-04-26 16:19 | disposition home or self-care (01) ==
LOC: ED 19:37 → MED SURG 23:11
PROVIDERS: ADMIT Family Medicine; ATTEND Family Medicine
DX: K29.70 Gastritis, unspecified, without bleeding (principal); R10.33 Periumbilical pain; K62.5 Hemorrhage of anus and rectum; R19.7 Diarrhea, unspecified; R20.2 Paresthesia of skin; R06.00 Dyspnea, unspecified; R11.2 Nausea with vomiting, unspecified
CPT/HCPCS: 36000; 36415; 74176; 80053; 81001; 82150; 82270; 82607; 82746; 82962; 83036; 83605; 83690; 84484; 85025; 93005; 93268; 93306; 94760; 94762; 96360; 96361; 96374; 96375; 99285; G0378; J1170; J1200; J2270; J2405; J2550; J2704; A9270-GY

== ENCOUNTER 2021-10-15 11:31 | Emergency (ER) | payer BC ==
--- NOTE | 2021-10-15 11:59 | ERPHSYRPT ---
- History of Present Illness Time Seen by Provider: 10/15/21 12:02 Source: patient Exam Limitations: no limitations Patient Subjective Stated Complaint: pt slipped on slick steps this morning and fell down 3-4 steps and now co pain to left shoulder, he states pain to left arm Triage Nursing Assessment: pt alert, walked in,resp easy skin w.d.p, face mask in place, no swelling or bruising noted , strong radial pulse Physician History: Patient is a 26-year-old male presents to our ED for evaluation of left shoulder pain. Patient states that he was descending a flight of steps slipped and fell 4 steps. Patient injured her left shoulder. No BHT or LOC. No neck pain. Cervical spine cleared clinically. Injury occurred today. Pain described as an ache that is localized. No radiation. Pain worse with movement and palpation. Pain improved with rest. Patient otherwise healthy. He voices no other complaints concerns. Portions of this note were created with voice recognition technology. There may be grammatical, spelling, punctuation or sound alike errors Timing/Duration: today Severity: mild Modifying Factors: Improves With: nothing Associated Symptoms: denies symptoms Allergies/Adverse Reactions: No Known Drug Allergies Allergy (Verified 10/15/21 11:41) Hx Tetanus, Diphtheria Vaccination/Date Given: No Hx Influenza Vaccination/Date Given: No Hx Pneumococcal Vaccination/Date Given: No Immunizations Up to Date: Yes Travel Risk - International Travel Have you traveled outside of the country in past 3 weeks: No - Coronavirus Screening Are you exhibiting any of the following symptoms?: No Close contact with a COVID-19 positive Pt in past 14-21 Days: No - Vaccine Status Have you recieved a Covid-19 vaccination: No - Review of Systems Constitutional: No Symptoms, No Fever, No Chills Eyes: No Symptoms Ears, Nose, & Throat: No Symptoms Respiratory: No Symptoms, No Cough, No Dyspnea Cardiac: No Symptoms, No Chest Pain, No Edema, No Syncope Abdominal/Gastrointestinal: No Symptoms, No Abdominal Pain, No Nausea, No Vomiting, No Diarrhea Genitourinary Symptoms: No Symptoms, No Dysuria Musculoskeletal: No Symptoms, No Back Pain, No Neck Pain Skin: No Symptoms, No Rash Neurological: No Symptoms, No Dizziness, No Focal Weakness, No Sensory Changes Psychological: No Symptoms Endocrine: No Symptoms Hematologic/Lymphatic: No Symptoms Immunological/Allergic: No Symptoms All Other Systems: Reviewed and Negative - Past Medical History Pertinent Past Medical History: No Neurological History: No Pertinent History ENT History: No Pertinent History Cardiac History: No Pertinent History Respiratory History: No Pertinent History Endocrine Medical History: No Pertinent History Musculoskeletal History: No Pertinent History GI Medical History: GERD History: No Pertinent History Psycho-Social History: No Pertinent History Male Reproductive Disorders: No Pertinent History - Past Surgical History Past Surgical History: Yes Neuro Surgical History: No Pertinent History Cardiac: No Pertinent History Respiratory: No Pertinent History Gastrointestinal: Cholecystectomy Genitourinary: No Pertinent History Musculoskeletal: No Pertinent History Male Surgical History: No Pertinent History - Social History Smoking Status: Current some day smoker How long have you smoked: 13 years Exposure to second hand smoke: No Drug Use: none Patient Lives Alone: No - Nursing Vital Signs Nursing Vital Signs: Initial Vital Signs O2 Sat by Pulse Oximetry 98 10/15/21 12:13 Pain Scale Pain Intensity 6 - Physical Exam General Appearance: no apparent distress, alert Eye Exam: PERRL/EOMI, eyes nml inspection Ears, Nose, Throat Exam: normal ENT inspection, TMs normal, pharynx normal, moist mucous membranes Neck Exam: normal inspection, non-tender, supple, full range of motion Respiratory Exam: normal breath sounds, lungs clear, airway intact, No respiratory distress Cardiovascular Exam: regular rate/rhythm, normal heart sounds, normal peripheral pulses Gastrointestinal/Abdomen Exam: soft, normal bowel sounds, No tenderness, No mass Back Exam: normal inspection, normal range of motion, No CVA tenderness, No vertebral tenderness Extremity Exam: normal inspection, normal range of motion, pelvis stable, other (Left shoulder pain with palpation at the superior anterior and lateral aspect of the shoulder. Overlying soft tissue intact. No signs of trauma. Extremity neurovascular intact distally. Compartments are soft. Patient able to flex and AB duct his shoulder however patient states this is painful.) Neurologic Exam: alert, oriented x 3, cooperative, normal mood/affect, nml cerebellar function, nml station & gait, sensation nml, No motor deficits Skin Exam: normal color, warm, dry, No rash Lymphatic Exam: No adenopathy SpO2 Interpretation: normal SpO2: 98 O2 Delivery: Room Air - Course Nursing assessment & vital signs reviewed: Yes - Radiology Exams Shoulder X-ray Interpretation: Teleradiologist Report (No fracture dislocations. No soft tissue abnormalities) Ordered Tests: Active Orders 24 hr Category Date Time Status SHOULDER Stat Exams 10/15/21 11:57 Completed - Progress Progress: improved Progress Note: 26-year-old male with left shoulder pain post fall. X-ray negative. Patient works as a oil painter. He is having significant pain. Possible rotator cuff injury. Patient placed in a left upper extremity sling. Referral to orthopedic clinic completed. Patient agrees to follow-up with orthopedic clinic tomorrow as instructed. Patient declined pain medication. He states he has pain medication at home. He voices no other complaints or concerns at this time. No indication for further work-up. Will discharge home. Portions of this note were created with voice recognition technology. There may be grammatical, spelling, punctuation or sound alike errors 10/15/21 12:15 Counseled pt/family regarding: diagnosis, need for follow-up, rad results - Departure Departure Disposition: Home Clinical Impression: Left shoulder strain Condition: Stable Critical Care Time: No Referrals: VANESSA DOLAN [Primary Care Provider] - Follow up/PCP as directed Additional Instructions: Discharge/Care Plan ABEL SIMENTAL JER was seen on 10/15/21 in the Emergency Room. The patient was counseled regarding Diagnosis,Lab results, Imaging studies, need for follow up and when to return to the Emergency Room. Prescriptions given: Discharge Note I have spoken with the patient and/or caregivers. I have explained the patient's condition, diagnosis and treatment plan based on the information available to me at this time. I have answered the patient's and/or caregiver's questions and addressed any concerns. The patient and/or caregivers have as good understanding of the patient's diagnosis, condition and treatment plan as can be expected at this point. The vital signs have been stable. The patient's condition is stable and appropriate for discharge from the emergency department. The patient will pursue further outpatient evaluation with the primary care physician or other designated or consulting physician as outlined in the discharge instructions. The patient and/or caregivers are agreeable to this plan of care and follow-up instructions have been explained in detail. The patient and/or caregivers have received these instruction. The patient/and or caregivers are aware that any significant change in condition or worsening of symptoms should prompt an immediate return to this or the closest emergency department or call 911. Outpatient Orders: Ortho Referral Time Frame: 1 Day, Facility: [facility], Location: ORTHO CLINIC
--- NOTE | 2021-10-15 12:05 | XRAY ---
Indication: Pain following fall. Comparison: None 3 view left shoulder obtained. No bony, articular, or soft tissue abnormalities.
[2021-10-15 12:29] VITALS: BP 127/70; PULSE 74; O2SAT 97
== END 2021-10-15 12:31 | disposition home or self-care (01) ==
LOC: ED 11:31
DX: S46.912A Strain of unspecified muscle, fascia and tendon at shoulder and upper arm level, left arm, initial encounter (principal); W10.9XXA Fall (on) (from) unspecified stairs and steps, initial encounter; Z72.0 Tobacco use; Z28.310 Unvaccinated for COVID-19
CPT/HCPCS: 73030; 99282

== ENCOUNTER 2024-01-01 20:54 | Emergency (ER) | payer BC ==
--- NOTE | 2024-01-01 20:59 | ERPHSYRPT ---
- History of Present Illness Time Seen by Provider: 01/01/24 20:57 Historian: patient, family Exam Limitations: no limitations Physician History: This is a 28-year-old white male patient of nurse practitioner Ignacio who began having complaints of upper abdominal pain and lower chest pain with associated vomiting and diarrhea symptoms. Patient has no coronary artery disease history. He has had a cholecystectomy in the past. He has history of gastroesophageal reflux disease. He has no known exposures dividual's with similar symptoms. Patient did start doxycycline antibiotic 2 days ago. He was given this medication to treat strep throat per him and his significant others report Timing/Duration: today Activities at Onset: none Quality: aching, cramping Location: epigastric, abdomen Chest Pain Radiation: no radiation Severity of Pain-Max: moderate Severity of Pain-Current: moderate Modifying Factors: Improves With: defecating Associated Symptoms: nausea (Diarrhea), vomiting, abdominal pain, other (Diarrhea) Prior Chest Pain/Cardiac Workup: no prior chest pain, no prior cardiac workup Nitro Today/Relief: no nitro taken today Aspirin Treatment Today: no aspirin today Allergies/Adverse Reactions: No Known Drug Allergies Allergy (Verified 10/15/21 11:41) Hx Tetanus, Diphtheria Vaccination/Date Given: No Hx Influenza Vaccination/Date Given: No Hx Pneumococcal Vaccination/Date Given: No Travel Risk - International Travel Have you traveled outside of the country in past 3 weeks: No - Emerging Infectious Disease Are you exhibiting symptoms associated with any current EIDs: Yes Symptoms: Abdominal Pain, Diarrhea, Vomitting - Review of Systems Constitutional: Weakness Eyes: No Symptoms Ears, Nose, & Throat: No Symptoms Respiratory: No Symptoms Cardiac: No Symptoms Abdominal/Gastrointestinal: Abdominal Pain (Epigastrium), Nausea, Vomiting, Diarrhea, Appetite Changes Genitourinary Symptoms: No Symptoms Musculoskeletal: No Symptoms Skin: No Symptoms Neurological: No Symptoms Psychological: No Symptoms Endocrine: No Symptoms Hematologic/Lymphatic: No Symptoms Immunological/Allergic: No Symptoms All Other Systems: Reviewed and Negative - Past Medical History Pertinent Past Medical History: No Neurological History: No Pertinent History ENT History: No Pertinent History Cardiac History: No Pertinent History Respiratory History: No Pertinent History Endocrine Medical History: No Pertinent History Musculoskeletal History: No Pertinent History GI Medical History: GERD History: No Pertinent History Psycho-Social History: No Pertinent History Male Reproductive Disorders: No Pertinent History Other Medical History: ENLARGED HEART - Past Surgical History Past Surgical History: Yes Neuro Surgical History: No Pertinent History Cardiac: No Pertinent History Respiratory: No Pertinent History Gastrointestinal: Cholecystectomy Genitourinary: No Pertinent History Musculoskeletal: No Pertinent History Male Surgical History: No Pertinent History - Social History Smoking Status: Current some day smoker How long have you smoked: 13 years Exposure to second hand smoke: No Drug Use: none Patient Lives Alone: No - Nursing Vital Signs Nursing Vital Signs: Initial Vital Signs Temperature 98.7 F 01/01/24 20:57 Pulse Rate 94 H 01/01/24 20:57 Respiratory Rate 18 01/01/24 20:57 Blood Pressure 119/80 01/01/24 20:57 O2 Sat by Pulse Oximetry 100 01/01/24 20:57 Pain Scale Pain Intensity 5 - Physical Exam General Appearance: mild distress, alert, anxiety Eye Exam: PERRL/EOMI, eyes nml inspection Ears, Nose, Throat Exam: normal ENT inspection, moist mucous membranes Neck Exam: normal inspection, non-tender, supple, full range of motion Respiratory Exam: normal breath sounds, lungs clear, airway intact, No chest tenderness, No respiratory distress Cardiovascular Exam: regular rate/rhythm, normal heart sounds, normal peripheral pulses Gastrointestinal/Abdomen Exam: soft, normal bowel sounds, tenderness (Epigastric pain to palpation), guarding, No rebound Rectal Exam: not done Back Exam: normal inspection, normal range of motion, No CVA tenderness, No vertebral tenderness Neurologic Exam: alert, oriented x 3, cooperative, engine builder II-XII nml as tested, nml cerebellar function, nml station & gait, sensation nml Skin Exam: normal color, warm, dry Lymphatic Exam: No adenopathy SpO2 Interpretation: normal O2 Delivery: Room Air - Course Nursing assessment & vital signs reviewed: Yes EKG Interpreted by Me: RATE (110), LAFB, prolonged QT interval (Borderline), Non-specific ST Changes, Other (Atrial flutter. No acute ischemia on today's twelve-lead EKG. QTc 477) Ordered Tests: Active Orders 24 hr Category Date Time Status EKG-ER Only STAT Care 01/01/24 21:13 Active IV Insertion STAT Care 01/01/24 21:13 Active ABDOMEN AND PELVIS W/0 CONTRAS [CT] Stat Exams 01/01/24 21:13 Completed CHEST 1 VIEW (PORTABLE) Stat Exams 01/01/24 21:14 Taken AMYLASE Stat Lab 01/01/24 21:30 Completed BLOOD CULTURE Stat Lab 01/01/24 21:30 Ordered CBC W DIFF Stat Lab 01/01/24 21:30 Completed CMP Stat Lab 01/01/24 21:30 Completed LIPASE Stat Lab 01/01/24 21:30 Completed MONO SCREEN Stat Lab 01/01/24 21:30 Completed TROPONIN Q4H Lab 01/01/24 21:30 Completed TROPONIN Q4H Lab 01/02/24 01:15 Ordered TROPONIN Q4H Lab 01/02/24 05:15 Ordered UA W/RFX UR CULTURE Stat Lab 01/01/24 23:39 Completed Medication Summary Discontinued Medications Generic Name Dose Route Start Last Admin Trade Name Freq PRN Reason Stop Dose Admin Diphenhydramine HCl 25 mg 01/01/24 23:41 01/01/24 23:46 Diphenhydramine Hcl 50 Mg/Ml Vial IV 01/01/24 23:42 25 mg STAT ONE Administration Diphenhydramine HCl Confirm 01/01/24 23:44 Diphenhydramine Hcl 50 Mg/Ml Vial Administered 01/01/24 23:45 Dose 50 mg .ROUTE .STK-MED ONE Hydromorphone HCl 1 mg 01/01/24 21:13 01/01/24 21:34 Hydromorphone 1 Mg/1ml Inj IV 01/01/24 21:14 1 mg STAT ONE Administration Hydromorphone HCl Confirm 01/01/24 21:26 Hydromorphone 1 Mg/1ml Inj Administered 01/01/24 21:27 Dose 1 mg .ROUTE .STK-MED ONE Hydromorphone HCl 1 mg 01/01/24 22:20 01/01/24 22:24 Hydromorphone 1 Mg/1ml Inj IV 01/01/24 22:21 1 mg STAT ONE Administration Hydromorphone HCl Confirm 01/01/24 22:22 Hydromorphone 1 Mg/1ml Inj Administered 01/01/24 22:23 Dose 1 mg .ROUTE .STK-MED ONE Sodium Chloride 1,000 mls @ 999 mls/hr 01/01/24 21:13 01/01/24 22:31 Sodium Chloride 0.9% 1000 Ml IV 01/01/24 22:13 Infused .Q1H1M STA Infusion Sodium Chloride Confirm 01/01/24 21:26 Sodium Chloride 0.9% 1000 Ml Administered 01/01/24 21:27 Dose 1,000 mls @ ud .ROUTE .STK-MED ONE Sodium Chloride 1,000 mls @ 999 mls/hr 01/01/24 22:52 01/01/24 23:00 Sodium Chloride 0.9% 1000 Ml IV 01/01/24 23:52 999 mls/hr .Q1H1M STA Administration Sodium Chloride Confirm 01/01/24 22:57 Sodium Chloride 0.9% 1000 Ml Administered 01/01/24 22:58 Dose 1,000 mls @ ud .ROUTE .STK-MED ONE Ondansetron HCl 4 mg 01/01/24 22:52 01/01/24 23:00 Ondansetron Hcl 4 Mg/2 Ml Vial IV 01/01/24 22:53 4 mg STAT ONE Administration Ondansetron HCl Confirm 01/01/24 22:57 Ondansetron Hcl 4 Mg/2 Ml Vial Administered 01/01/24 22:58 Dose 4 mg .ROUTE .STK-MED ONE Pantoprazole Sodium 40 mg 01/01/24 21:13 01/01/24 21:30 Pantoprazole 40 Mg Vial IV 01/01/24 21:14 40 mg STAT ONE Administration Pantoprazole Sodium Confirm 01/01/24 21:25 Pantoprazole 40 Mg Vial Administered 01/01/24 21:26 Dose 40 mg IV .STK-MED ONE Prochlorperazine Edisylate 5 mg 01/01/24 21:13 01/01/24 21:31 Prochlorperazine Edisylate 10 Mg/2 Ml Vial IV 01/01/24 21:14 5 mg STAT ONE Administration Prochlorperazine Edisylate Confirm 01/01/24 21:26 Prochlorperazine Edisylate 10 Mg/2 Ml Vial Administered 01/01/24 21:27 Dose 10 mg .ROUTE .STK-MED ONE Prochlorperazine Edisylate 5 mg 01/01/24 23:41 01/01/24 23:45 Prochlorperazine Edisylate 10 Mg/2 Ml Vial IV 01/01/24 23:42 5 mg STAT ONE Administration Prochlorperazine Edisylate Confirm 01/01/24 23:44 Prochlorperazine Edisylate 10 Mg/2 Ml Vial Administered 01/01/24 23:45 Dose 10 mg .ROUTE .[facility] ONE Lab/Rad Data: Laboratory Result Diagrams 01/01/24 21:30 01/01/24 21:30 Laboratory Results 01/01/24 01/01/24 01/01/24 Range/Units 23:39 21:45 21:30 WBC (4.23-9.07) x10^3/uL RBC (4.63-6.08) x10^6/uL Hgb (13.7-17.5) g/dL Hct (40.1-51.0) % MCV (79.0-92.2) fL MCH (25.7-32.2) pg MCHC (32.3-36.5) g/dL RDW (11.6-14.4) % Plt Count (163-337) x10^3/uL MPV (9.4-12.4) fL Gran % (34.0-67.9) % Immature Gran % (Auto) (0.001-0.429) % Nucleat RBC Rel Count (0.00-0.2) % Eos # (Auto) (0.04-0.54) x10^3/uL Immature Gran # (Auto) (0.001-0.031) x10^3u/L Absolute Lymphs (auto) (1.32-3.57) x10^3/uL Absolute Monos (auto) (0.30-0.82) x10^3/uL Absolute Nucleated RBC (0.00-0.012) x10^3u/L Lymphocytes % (21.8-53.1) % Monocytes % (5.3-12.2) % Eosinophils % (0.8-7.0) % Basophils % (0.2-1.2) % Absolute Granulocytes (1.78-5.38) x10^3/uL Basophils # (0.01-0.08) x10^3/uL Sodium (135-145) mmol/L Potassium (3.5-5.1) mmol/L Chloride (98-107) mmol/L Carbon Dioxide (22-30) mmol/L Anion Gap (5-15) MEQ/L BUN (9-20) mg/dL Creatinine (0.66-1.25) mg/dL Estimated GFR ML/MIN Glucose (74-106) mg/dL Calcium (8.4-10.2) mg/dL Total Bilirubin (0.2-1.3) mg/dL AST (17-59) U/L ALT (0-50) U/L Alkaline Phosphatase (38-126) U/L Troponin I (0.000-0.033) ng/mL Serum Total Protein (6.3-8.2) g/dL Albumin (3.5-5.0) g/dL Amylase (30-110) U/L Lipase (23-300) U/L Urine Color Dark Yellow (Yellow) Urine Appearance Cloudy A (Clear) Urine pH 6.0 (4.6-8.0) Ur Specific [place] >=1.030 A (1.005-1.030) Urine Protein 30 (Negative) Urine Glucose (UA) Negative (Negative) mg/dL Urine Ketones Trace A (Negative) Urine Blood Negative (Negative) Urine Nitrite Negative (Negative) Urine Bilirubin Negative (Negative) Urine Urobilinogen 0.2 (0.2) mg/dL Ur Leukocyte Esterase Negative (Negative) U Hyaline Cast (Auto) 3-5 A (0-2) /LPF Urine Microscopic RBC 0-2 (0-5) /HPF Urine Microscopic WBC 0-2 (0-5) /HPF Ur Epithelial Cells None Seen (None Seen) /HPF Urine Bacteria None Seen (None Seen) /HPF Urine Culture Reflexed NO (NO) Monoscreen NEGATIVE (NEGATIVE) Influenza Type A Ag NEGATIVE (NEGATIVE) Influenza Type B Ag NEGATIVE (NEGATIVE) RSV (PCR) NEGATIVE (NEGATIVE) SARS-CoV-2 (PCR) NEGATIVE (NEGATIVE) 01/01/24 01/01/24 01/01/24 Range/Units 21:30 21:30 21:30 WBC 19.4 H (4.23-9.07) x10^3/uL RBC 5.72 (4.63-6.08) x10^6/uL Hgb 17.6 H (13.7-17.5) g/dL Hct 51.7 H (40.1-51.0) % MCV 90.4 (79.0-92.2) fL MCH 30.8 (25.7-32.2) pg MCHC 34.0 (32.3-36.5) g/dL RDW 12.1 (11.6-14.4) % Plt Count 248 (163-337) x10^3/uL MPV 9.4 (9.4-12.4) fL Gran % 88.4 H (34.0-67.9) % Immature Gran % (Auto) 0.6 H (0.001-0.429) % Nucleat RBC Rel Count 0.0 (0.00-0.2) % Eos # (Auto) 0.08 (0.04-0.54) x10^3/uL Immature Gran # (Auto) 0.11 H (0.001-0.031) x10^3u/L Absolute Lymphs (auto) 0.79 L (1.32-3.57) x10^3/uL Absolute Monos (auto) 1.22 H (0.30-0.82) x10^3/uL Absolute Nucleated RBC 0.00 (0.00-0.012) x10^3u/L Lymphocytes % 4.1 L (21.8-53.1) % Monocytes % 6.3 (5.3-12.2) % Eosinophils % 0.4 L (0.8-7.0) % Basophils % 0.2 (0.2-1.2) % Absolute Granulocytes 17.20 H (1.78-5.38) x10^3/uL Basophils # 0.04 (0.01-0.08) x10^3/uL Sodium 140 (135-145) mmol/L Potassium 4.3 (3.5-5.1) mmol/L Chloride 107 (98-107) mmol/L Carbon Dioxide 18 L (22-30) mmol/L Anion Gap 19.1 H (5-15) MEQ/L BUN 22 H (9-20) mg/dL Creatinine 1.01 (0.66-1.25) mg/dL Estimated GFR 103.2 ML/MIN Glucose 135 H (74-106) mg/dL Calcium 9.4 (8.4-10.2) mg/dL Total Bilirubin 0.70 (0.2-1.3) mg/dL AST 41 (17-59) U/L ALT 50 (0-50) U/L Alkaline Phosphatase 109 (38-126) U/L Troponin I < 0.012 (0.000-0.033) ng/mL Serum Total Protein 8.0 (6.3-8.2) g/dL Albumin 4.8 (3.5-5.0) g/dL Amylase 104 (30-110) U/L Lipase 105 (23-300) U/L Urine Color (Yellow) Urine Appearance (Clear) Urine pH (4.6-8.0) Ur Specific [place] (1.005-1.030) Urine Protein (Negative) Urine Glucose (UA) (Negative) mg/dL Urine Ketones (Negative) Urine Blood (Negative) Urine Nitrite (Negative) Urine Bilirubin (Negative) Urine Urobilinogen (0.2) mg/dL Ur Leukocyte Esterase (Negative) U Hyaline Cast (Auto) (0-2) /LPF Urine Microscopic RBC (0-5) /HPF Urine Microscopic WBC (0-5) /HPF Ur Epithelial Cells (None Seen) /HPF Urine Bacteria (None Seen) /HPF Urine Culture Reflexed (NO) Monoscreen (NEGATIVE) Influenza Type A Ag (NEGATIVE) Influenza Type B Ag (NEGATIVE) RSV (PCR) (NEGATIVE) SARS-CoV-2 (PCR) (NEGATIVE) - Progress Progress: improved, re-examined Air Movement: good Progress Note: 01/01/24 22:08 My medical decision making and the assignment of moderate complexity to this patient's medical issue today is based on review of the patient's past medical history, review of the patient's medication list, reviewed patient drug allergy list, history present illness and physical findings on examination. 01/01/24 22:09 The workup includes placement of intravenous line, infusion of normal saline solution, infusion of Compazine intravenously, infusion of Dilaudid intravenously, CBC, CMP, amylase, lipase, urinalysis, twelve-lead EKG, troponin level, viral swabs, monotest. Differential diagnosis includes but is not limited to viral illness, bowel obstruction, pancreatitis, myocardial infarction, electrolyte abnormalities, arrhythmias 01/01/24 22:57 I reexamined the patient. Clinically his nausea still present but improved. His pain is significantly proved and he is resting. 01/02/24 00:20 I interpreted the patient's laboratory data results. Based on the laboratory data results, the patient has no acute, emergent medical issue. The CT scan of the abdomen pelvis without contrast was interpreted by the radiologist and I reviewed the impression. The present states no acute intra- abdominal abnormality. Mild fluid distention of small bowel loops consistent with ileus. Blood Culture(s) Obtained: Yes Antibiotics given: No Counseled pt/family regarding: lab results, need for follow-up, rad results Medical Desision Making - Independent Historian Additional History obtained from: Family - Diagnostic Testing Diagnostic test were ordered, analyzed, and reviewed by me: Yes Radiological Interpretation: Reviewed by me, Teleradiologist Report - Risk of complications The pt has a mod risk of morbidity or mortality based on: Need for prescription drug management - Departure Departure Disposition: Home Clinical Impression: Gastritis, Ileus Condition: Stable Critical Care Time: No Referrals: HERBIE MOSCOSO, [employer] [Primary Care Provider] - Follow up/PCP as directed Additional Instructions: Drink plenty of clear liquids before advancing your diet. Avoid fatty greasy spicy foods. Stop your doxycycline. Call your prescribing provider on 01/04/2024 to make arranges for follow-up appointment for further evaluation management. Take your medications as prescribed. Prescriptions: Ondansetron ODT 4 MG [Zofran Odt 4 mg] 4 mg PO Q6H PRN PRN #10 tablet PRN Reason: Vomiting Famotidine 20 mg [Pepcid 20 MG] 20 mg PO DAILY #10 tablet
[2024-01-01 21:11] VITALS: TEMP 98.7
[2024-01-01] MEDS ORDERED: PROTONIX 40 MG IV IV ONE (21:25)
[2024-01-01] MEDS ORDERED: Compazine 10 MG/2 ML ONE ×2 (21:26→23:44)
[2024-01-01] MEDS ORDERED: Sodium Chloride 0.9% 1000 ML 1,000 ML ONE ×2 (21:26→22:57)
[2024-01-01] MEDS ORDERED: Hydromorphone 1 mg/ml Injection ONE ×2 (21:26→22:22)
[2024-01-01] MEDS: Sodium Chloride 0.9% 1000 ML 1,000 ML IV STA ×2 (21:30→23:00)
[2024-01-01] MEDS: PROTONIX 40 MG IV IV ONE (21:30)
[2024-01-01] MEDS: Compazine 10 MG/2 ML IV ONE ×2 (21:31→23:45)
[2024-01-01] MEDS: Hydromorphone 1 mg/ml Injection IV ONE ×2 (21:34→22:24)
[2024-01-01 21:53] LABS: BASOPHIL % 0.2 % (0.2-1.2); Basophil (Absolute #) 0.04 x10^3/uL (0.01-0.08); Eosinophil % 0.4 % (0.8-7.0); Eosinophil (Absolute #) 0.08 x10^3/uL (0.04-0.54); Hematocrit 51.7 % (40.1-51.0); Hemoglobin 17.6 g/dL (13.7-17.5); IMMATURE GRAN # 0.11 x10^3u/L (0.001-0.031); IMMATURE GRAN % 0.6 % (0.001-0.429); Lymphocyte (Absolute #) 0.79 x10^3/uL (1.32-3.57); Lymphocytes % 4.1 % (21.8-53.1); Mean Cell Volume 90.4 fL (79.0-92.2); Mean Corpuscular Hemoglobin 30.8 pg (25.7-32.2); Mean Platelet Volume 9.4 fL (9.4-12.4); Monocyte (Absolute #) 1.22 x10^3/uL (0.30-0.82); Monocytes % 6.3 % (5.3-12.2); Neutrophil % 88.4 % (34.0-67.9); Platelet Count 248 x10^3/uL (163-337); Red Blood Count 5.72 x10^6/uL (4.63-6.08); Red Cell Distribution Width 12.1 % (11.6-14.4); White Blood Count 19.4 x10^3/uL (4.23-9.07)
[2024-01-01 22:07] LABS: ALBUMIN 4.8 g/dL (3.5-5.0); ANION GAP 19.1 MEQ/L (5-15); BILIRUBIN,TOTAL 0.7 mg/dL (0.2-1.3); Calcium 9.4 mg/dL (8.4-10.2); Creatinine 1 1.01 mg/dL (0.66-1.25); EST GLOMERULAR FILTRATION RATE 103.2 ML/MIN; Potassium 4.3 mmol/L (3.5-5.1)
[2024-01-01 22:29] LABS: INFLUENZA A NEGATIVE (NEGATIVE); INFLUENZA B NEGATIVE (NEGATIVE); RESPIRATORY SYNCTIAL VIRUS NEGATIVE (NEGATIVE); SARS-CoV-2 Xpert Express NEGATIVE (NEGATIVE)
[2024-01-01] MEDS ORDERED: Zofran 4 MG/2 ML VIAL ONE (22:57)
[2024-01-01] MEDS: Zofran 4 MG/2 ML VIAL IV ONE (23:00)
--- NOTE | 2024-01-01 23:11 | XRAY ---
CLINICAL HISTORY: Abdominal pain; V/D COMPARISON: - TECHNIQUE: Contiguous axial images were obtained from the level of the diaphragm to the pubic symphysis without intravenous or oral contrast. Coronal and sagittal reconstructions were likewise performed and indicated to increase the sensitivity for detecting clinically relevant pathology. CT scan was performed according to ALARA (as low as reasonably achievable).? FINDINGS: The visualized lung bases are clear. Evaluation of the abdominal and pelvic visceral organs is limited without intravenous contrast. The unenhanced liver, spleen, pancreas, and adrenal glands are grossly unremarkable. The gallbladder is post operative. The kidneys are normal in size and attenuation without obvious calcification. There is no hydronephrosis or perinephric stranding. The ureters are normal in caliber. No adenopathy or fluid collections are seen. No evidence of focal or diffuse bowel wall thickening or evidence of bowel obstruction is seen. The appendix is not visualized in the right lower quadrant. Mild fluid distension of small bowel loops. The aorta is normal in caliber. The urinary bladder is normal in contour. Pelvic viscera are grossly unremarkable. No aggressive appearing osseous lesions are identified. IMPRESSION: No acute intra abdominal abnormality. Mild fluid distension of small bowel loops -likely ileus of infective/inflammatory etiology. Suggested clinical and lab correlation. Electronically Signed by: Toan Quevedo MD. (01/01/2024 23:05:56 EST)
[2024-01-01] MEDS ORDERED: BENADRYL 50 MG/ML ONE (23:44)
[2024-01-01] MEDS: BENADRYL 50 MG/ML IV ONE (23:46)
[2024-01-01 23:49] LABS: Appearance Cloudy (Clear); Bacteria None Seen /HPF (None Seen); Bilirubin Negative (Negative); Blood Negative (Negative); Epithelial Cells None Seen /HPF (None Seen); Glucose, Urine Negative (Negative); Ketones Trace (Negative); Leukocyte Esterase Negative (Negative); Nitrite Negative (Negative); Protein,Urine Dip 30 (Negative); RBC 0-2 /HPF (0-5); Specific Gravity >=1.030 (1.005-1.030); Urobilinogen 0.2 mg/dL (0.2); WBC 0-2 /HPF (0-5)
[2024-01-02 01:04] VITALS: BP 107/62; PULSE 83; RESP 19; O2SAT 99
--- NOTE | 2024-01-02 08:21 | XRAY ---
Indication: Chest pain. Comparison: July 25, 2019 Portable apical lordotic chest again demonstrates normal heart, lungs, and bony thorax.
== END 2024-01-02 01:09 | disposition home or self-care (01) ==
LOC: ED 20:54
DX: K29.70 Gastritis, unspecified, without bleeding (principal); K56.7 Ileus, unspecified; D72.829 Elevated white blood cell count, unspecified; R11.2 Nausea with vomiting, unspecified; R10.10 Upper abdominal pain, unspecified; R07.9 Chest pain, unspecified; Z79.899 Other long term (current) drug therapy; Z72.0 Tobacco use
CPT/HCPCS: 0241U; 36415; 71045; 74176; 80053; 81001; 82150; 83690; 84484; 85025; 86308; 87040; 93005; 96374; 96375; 96376; 99285; J1171; J1200; J2405